=== PATIENT | female | born 1980 | race Caucasian/White ===

== ENCOUNTER 2016-11-09 15:37 | Emergency (ER) | payer BC ==
[~2016-11-09] VITALS: Ht 165.1 cm; Wt 78.0 kg
[2016-11-09 15:43] VITALS: BP 141/97; PULSE 78; RESP 20; TEMP 97.7; O2SAT 97
--- NOTE | 2016-11-09 17:21 | PD ---
HPI Chief Complaint: Lump, Cyst, Hernia Time Seen by Provider: 17:09 Travel History International Travel<30 days: No Contact w/Intl Traveler<30days: No Traveled to known affect area: No History of Present Illness HPI This is a 35-year-old female who presents to the emergency department with a painful umbilical hernia that's been present for months to years, but has worsened today. She says this morning she had severe pain in her hernia to the point where she was rolling on the floor and had to come to the emergency department. She denies any associated nausea, vomiting, constipation, fevers or chills. PFSH Past Medical History Medical History: Denies Significant Hx Diminished Hearing: No ?: Not LMP: 11/01/16 Past Surgical History Section: Yes Social History Alcohol Use: No Tobacco Use: No Substance Use: No Allergies-Medications (Allergen,Severity, Reaction): Coded Allergies: No Known Allergies (Unverified , 11/09/16) Reported Meds & Prescriptions Reported Meds & Active Scripts Active No Active Prescriptions or Reported Medications Review of Systems Except as stated in HPI: all other systems reviewed are Neg Physical Exam Narrative GENERAL:Well appearing, no acute distress SKIN: Warm and dry. HEAD: Atraumatic. Normocephalic. EYES: Pupils equal and round. No injection or drainage. ENT: Moist mucous membranes NECK: Trachea midline. CARDIOVASCULAR: Regular rate and rhythm. No murmur appreciated. RESPIRATORY: Clear to auscultation. Breath sounds equal bilaterally. GASTROINTESTINAL: Abdomen soft, reducible supraumbilical hernia MUSCULOSKELETAL: No obvious deformities. NEUROLOGICAL: Awake and alert. No obvious cranial nerve deficits. Moving all extremities. PSYCHIATRIC: Appropriate mood and affect; insight and judgment normal. Data Data Last Documented VS Vital Signs Date Time Temp Pulse Resp B/P Pulse Ox O2 Delivery O2 Flow Rate FiO2 11/09/16 17:02 80 18 11/09/16 15:43 97.7 141/97 97 Room Air MDM Medical Decision Making Medical Screen Exam Complete: Yes Emergency Medical Condition: Yes Interpretation(s) Afebrile, no tachycardia, hypertensive Differential Diagnosis Umbilical hernia, incarcerated hernia, strangulated hernia, bowel obstruction Narrative Course This is a 35-year-old female who presents to the emergency department with a symptomatic umbilical hernia. It's currently reducible soft with no evidence of string angulation or incarceration. She has no signs of bowel obstruction. I think she is safe for discharge to follow up with general surgery as needed.. Diagnosis Primary Impression: Umbilical hernia Qualified Code: K42.9 - Umbilical hernia without obstruction and without gangrene Referrals: [facility] Patient Instructions: General Instructions Additional Instructions: If you develop severe or worsening abdominal pain, fever>100.4, persistent vomiting or inability to eat or drink return to the emergency department immediately. Follow up with your primary care physician in 1-2 days for a check-up. Med/Other Pt SpecificInfo: No Change to Meds Scripts No Active Prescriptions or Reported Meds Disposition: 01 DISCHARGE HOME Condition: Stable Bailey Fajardo MD Nov 09, 2016 17:21
[2016-11-09] MEDS ORDERED: ABDOMINAL BINDE1 MI1 TD (17:36)
== END 2016-11-09 18:09 | disposition home or self-care (01) ==
LOC: NEPE 15:37
DX: K42.9 Umbilical hernia without obstruction or gangrene (principal)
CPT/HCPCS: 99283